=== PATIENT | female | born 1970 | race Caucasian/White ===

== ENCOUNTER 2021-07-08 09:23 | Outpatient (CLI) | payer BC, SELFPAY ==
--- NOTE | ~2021-07-08 | XR_ITS ---
EXAMINATION: XR hip LT min 3V w AP pelvis DATE: 07/08/2021 09:47 INDICATION: Left hip pain. TECHNIQUE: An anteroposterior view of the pelvis and 3 views of left hip were obtained. COMPARISON: None. FINDINGS: Bone alignment is normal. No fracture. There is moderate osteoarthritis of the hips. There is at least mild lumbar spondylosis. IMPRESSION: 1. Moderate osteoarthritis of the hips. Reviewed, dictated and finalized at location A. OF ADVERTISING
== END 2021-07-08 09:24 | disposition home or self-care (01) ==
LOC: ANHIMG 09:26
PROVIDERS: PCP Family Medicine; Visit Provider Nurse Practitioner Family
DX: M16.0 Bilateral primary osteoarthritis of hip (principal)
CPT/HCPCS: 73502

== ENCOUNTER 2023-11-17 14:11 | Outpatient (CLI) | payer BC, SELFPAY ==
--- NOTE | ~2023-11-17 | XR_ITS ---
EXAMINATION: XR barium swallow modified DATE: 11/17/2023 15:02 INDICATION: Dysphagia. TECHNIQUE: The patient was given barium-containing material of multiple consistencies to swallow by t he speech pathologist while I performed fluoroscopy. Fluoroscopy exposure time was 0.6 minutes. The n umber of fluoroscopy images saved to the PACS was 1. Dose-area product was 1.067 Gy-cm^2. FINDINGS: The oral stage, pharyngeal stage, and cervical/esophageal stage of the swallow are normal. IMPRESSION: 1. Normal modified barium swallow. 2. Please refer to the speech therapy report for recommendations. Reviewed, dictated and finalized at location E.
--- NOTE | 2023-11-17 15:44 | REHSTMBS ---
Assessment and note entered by Janeth Peralta, PASSENGER LOCOMOTIVE ENGINEER Modified Barium Swallow Evaluation Feeding Type Recommended Oral Food Consistency Regular, Level 7 Liquid Consistency Thin (0) ST Clinical Summary MODIFIED BARIUM SWALLOW STUDY This patient was seen for a Modified Barium Swallow study at the request of her physician. Patient reports for about the past year, she has noticed difficulty swallow dry foods such as bread, cake, and cupcakes. Patient did state that sometimes dry meat could hang up in her throat but she was mostly concerned about the bread/cake consistencies. She denied difficulty swallowing liquids or other foods/drinks. Patient was viewed in the lateral position to the level of C5/C6. Patient was presented with graduated amounts of pudding mixed with semi-solid contrast medium, thin liquid contrast medium, and fruit cocktail and john cracker pieces both coated with the semi-solid mixture. Patient elicited quick swallows with no evidence of penetration/aspiration and no significant pharyngeal residue. Results suggest this patient's swallowing skills are grossly within normal limits. She was instructed in the use of small bites and head flexion while swallowing to assist with movement of food material through the pharynx. She voiced understanding of recommendations. Thank you for this referral.
== END 2023-11-17 14:12 | disposition home or self-care (01) ==
PROVIDERS: PCP Family Medicine; Visit Provider Nurse Practitioner Family
DX: R13.10 Dysphagia, unspecified (principal)
CPT/HCPCS: 92611

== ENCOUNTER 2024-05-06 09:27 | Outpatient (CLI) | payer BC, SELFPAY ==
--- NOTE | ~2024-05-06 | XR_ITS ---
XR hip BI 2V w AP pelvis 05/06/2024 10:05 Indication: Hip pain Procedure: 3 views each hip including AP pelvis Comparison: 07/08/2021 Findings: There is moderate osteoarthritis of the hips which is symmetric. No fracture or traumatic m alalignment. Pelvic rings are intact. Sacral foramen are symmetric. Impression: 1: Moderate bilateral osteoarthritis of the hips. Reviewed, dictated and finalized at location B. Impression: 1: Moderate bilateral osteoarthritis of the hips.
== END 2024-05-06 09:28 | disposition home or self-care (01) ==
PROVIDERS: PCP Family Medicine; Visit Provider Nurse Practitioner Family
DX: M16.0 Bilateral primary osteoarthritis of hip (principal)
CPT/HCPCS: 73521